=== PATIENT | male | born 1985 | race Caucasian/White ===

== ENCOUNTER 2024-07-10 07:45 | Emergency (ER) | payer OTHER ==
[~2024-07-10] VITALS: Ht 167.6 cm; Wt 68.0 kg
[2024-07-10 07:50] VITALS: O2SAT 100
[2024-07-10] MEDS ORDERED: METH-653 MT (08:28)
[2024-07-10] MEDS: IBUPROFEN 600MG TABLET PO ONE (08:35)
[2024-07-10 08:38] VITALS: BP 117/77; PULSE 65; RESP 18; TEMP 37.1; O2SAT 100
== END 2024-07-10 08:39 | disposition home or self-care (01) ==
LOC: ER 07:45
DX: M54.50 Low back pain, unspecified (principal)
CPT/HCPCS: 99283

== ENCOUNTER 2024-07-12 11:20 | Emergency (ER) | payer OTHER ==
[~2024-07-12] VITALS: Ht 165.1 cm; Wt 72.5 kg
[~2024-07-12 11:20] MED LIST: METH-653 MT
[2024-07-12 11:21] VITALS: O2SAT 98
[2024-07-12] MEDS ORDERED: IBUP-2029 MT (14:21)
[2024-07-12] MEDS ORDERED: LIDO700A30 TP (14:21)
[2024-07-12 15:33] VITALS: BP 118/68; PULSE 71; RESP 20; TEMP 36.7; O2SAT 98
== END 2024-07-12 15:35 | disposition home or self-care (01) ==
LOC: ER 11:20
DX: S33.5XXA Sprain of ligaments of lumbar spine, initial encounter (principal); X58.XXXA Exposure to other specified factors, initial encounter; Y93.89 Activity, other specified; Y92.89 Other specified places as the place of occurrence of the external cause; Y99.8 Other external cause status
CPT/HCPCS: 72100; 99283